=== PATIENT | male | born 1950 | race African-American/Black ===

== ENCOUNTER 2017-09-28 17:16 | Emergency (ER) | payer MEDICAID ==
[~2017-09-28] VITALS: Ht 180.3 cm; Wt 68.0 kg
[2017-09-28] MEDS ORDERED: Tylenol #3 tab (300mg/30mg) PO ONE (17:30)
[2017-09-28 18:00] VITALS: BP 153/103
[2017-09-28 20:30] VITALS: BP 140/101
[2017-09-28] MEDS ORDERED: TYLENOL EXTRA500 MG ORAL (20:33)
[2017-09-28 20:39] VITALS: BP 140/101
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
--- NOTE | 2017-09-29 10:47 | Diagnostic Imaging Report ---
Indication: Facial pain Technique: CT maxillofacial was performed utilizing automated exposure control without intravenous contrast material. Axial and coronal images were generated. CT dose: Total DLP 591 mGycm; CTDI vol 28.2 mGy Comparison: None Findings: There is right facial soft tissue swelling. No acute fracture is identified. The orbits are intact. The mandible is also grossly intact. There is minimal mucoperiosteal thickening of the maxillary sinuses. No paranasal sinus air-fluid levels are identified. Mastoid air cells are clear. Degenerative changes of the cervical spine are present but incompletely evaluated. Impression: Right facial soft tissue swelling. No acute fracture. The CT scanner at [facility] is accredited by the [employer] and the scans are performed using protocols designed to limit radiation exposure to as low as reasonably achievable to attain images of sufficient resolution adequate for diagnostic evaluation.
== END 2017-09-28 20:45 | disposition home or self-care (01) ==
LOC: EDBD 17:16 → EMR 18:09
DX: S00.83XA Contusion of other part of head, initial encounter (principal); Y04.8XXA Assault by other bodily force, initial encounter; Y92.9 Unspecified place or not applicable
CPT/HCPCS: 70450; 70486; 99284